=== PATIENT | female | born 1940 | race Caucasian/White ===

== ENCOUNTER → 2017-02-11 | Outpatient (CLI) | payer MEDICARE ==
--- NOTE | 2017-02-11 15:04 | REP ---
Supine abdomen two views: There are no comparisons. The bowel gas pattern is normal. There is a large volume of fecal residue throughout the colon. There are right upper quadrant surgical clips. There is a spinal stimulator. There are degenerative disc changes and scoliosis in the lumbar spine. Impression: No bowel distension or obstruction. Large volume of fecal residue throughout the colon. Signed by Nathaniel Camarena MD 02/11/2017 02:56 P
== END ==
LOC: M WUC 14:13
PROVIDERS: ATTEND Physician Assistant
DX: K59.00 Constipation, unspecified (principal)

== ENCOUNTER → 2018-12-06 | Outpatient (CLI) | payer MEDICARE ==
--- NOTE | 2018-12-06 17:36 | REP ---
Clinical: Cough and fever. Technique: PA and lateral. Comparison: None. Findings: Evidence of prior sternotomy and epidural stimulator placement as well as right shoulder repair. Mediastinum and cardiac silhouette are normal. Chronic-appearing interstitial changes are suggested. Very subtle patchy basilar opacities and possible small right pleural reaction cannot be excluded. No significant effusion. No pneumothorax. Skeletal structures relatively intact. Impression: 1. No prior examination available for comparison. Chronic-appearing changes noted. 2. Cannot exclude subtle bibasilar atelectasis/early infiltrate and acute versus chronic small right pleural reaction with blunting of the costophrenic angle. Electronically Signed by Gorge Bro MD 12/06/2018 05:27 P
== END ==
LOC: M LRY 17:12
PROVIDERS: ATTEND Physician Assistant
DX: R91.8 Other nonspecific abnormal finding of lung field (principal); R05 Cough; R50.9 Fever, unspecified
CPT/HCPCS: 71046; G0463

== ENCOUNTER → 2021-05-19 | Outpatient (REF) | payer MEDICARE | LOC: M WUC 11:03 | PROVIDERS: ATTEND Nurse Practitioner Family | DX: N39.0 Urinary tract infection, site not specified (principal) ==

== ENCOUNTER → 2022-10-20 | Outpatient (REF) | payer MEDICARE | LOC: M SFHCDERM 14:18 | PROVIDERS: ATTEND Physician Assistant | DX: D23.5 Other benign neoplasm of skin of trunk (principal); L85.9 Epidermal thickening, unspecified ==

== ENCOUNTER → 2022-11-02 | Outpatient (REF) | payer MEDICARE | LOC: M SFHCDERM 13:00 | PROVIDERS: ATTEND Physician Assistant | DX: L90.5 Scar conditions and fibrosis of skin (principal) ==

== ENCOUNTER → 2024-02-16 | Outpatient (REF) | payer MEDICARE ==
[2024-02-16 17:24] LABS: URIC ACID 7.6 MG/DL (3.1-7.8)
[2024-02-18 07:13] LABS: PROTEIN, TOTAL SO 6.9 g/dL (6.1-8.1)
[2024-02-20 12:41] LABS: FREE KAPPA LIGHT CHAINS SERUM 22.6 mg/L (3.3-19.4); FREE LAMBDA LIGHT CHAINS SERUM 19.7 mg/L (5.7-26.3); KAPPA/LAMBDA RATIO SERUM 1.15 (0.26-1.65)
== END ==
LOC: M LAB REF 16:36
PROVIDERS: ATTEND Internal Medicine
DX: M10.9 Gout, unspecified (principal); G62.9 Polyneuropathy, unspecified

== ENCOUNTER → 2024-03-14 | Outpatient (CLI) | payer MEDICARE | LOC: M SOG 07:57 | PROVIDERS: ATTEND Physician Assistant | DX: M79.642 Pain in left hand (principal) ==

== ENCOUNTER → 2024-03-21 | Outpatient (CLI) | payer MEDICARE | LOC: M SOG 09:02 | PROVIDERS: ATTEND Physician Assistant | DX: M25.512 Pain in left shoulder (principal) ==

== ENCOUNTER → 2025-02-05 | Outpatient (REF) | payer MEDICARE | LOC: M SFHCDERM 17:21 | PROVIDERS: ATTEND Dermatology | DX: Z48.89 Encounter for other specified surgical aftercare (principal) ==